=== PATIENT | female | born 1960 | race Caucasian/White ===

== ENCOUNTER → 2017-04-27 | Outpatient (CLI) | payer BC ==
[~2017-04-27] MED LIST: CALC500C70 PO; CEPH500C PO; CHOL20007 PO; HYDR-5688 PO; MULT-190 PO; VALA500T60 PO
--- NOTE | 2017-04-28 13:28 | MAMMOGRAPHY REPORT ---
BILATERAL DIGITAL SCREENING MAMMOGRAM TOMOSYNTHESIS WITH CAD: 04/27/2017 CLINICAL HISTORY: Routine screening. TECHNIQUE: Breast tomosynthesis in addition to standard 2D mammography was performed. Current study was also evaluated with a Computer Aided Detection (CAD) system. COMPARISON: Comparison is made to exams dated: 04/25/2016 mammogram, 10/23/2015 mammogram, 10/15/2015 mammogram, 05/19/2014 mammogram, 05/17/2012 mammogram, and 02/27/2011 mammogram - [facility]. BREAST COMPOSITION: The tissue of both breasts is heterogeneously dense, which may obscure small mas ses. FINDINGS: There is a new 7 mm irregular focal asymmetry in the 2:00 to 3:00 posterior right breast, for which additional targeted ultrasound and possible additional mammographic views are recommended. Scattered and grouped bilateral punctate microcalcifications appear generally stable comparing to ozzie or mammograms. No other suspicious mass, architectural distortion or cluster of microcalcifications is seen bilaterally. IMPRESSION: ACR BI-RADS CATEGORY 0: INCOMPLETE EVALUATION: NEED ADDITIONAL IMAGING EVALUATION The new 7 mm irregular focal asymmetry in the posterior right breast needs additional evaluation. The patient will be called to schedule an appointment. Approximately 10% of breast cancers are not detected with mammography. A negative mammographic report should not delay biopsy if a clinically suggestive mass is present. Linda Sheehan M.D. ay/:04/27/2017 16:38:53 Pediatrics Physician: Kaylie KEN)(Annel), [facility] letter sent: Addl Imaging 0 BI-RADS Code: ACR BI-RADS Category 0: Incomplete Evaluation: Need Additional Imaging Evaluation
== END | disposition home or self-care (01) ==
LOC: C.MAMM 11:34
PROVIDERS: ATTEND Obstetrics & Gynecology
DX: Z12.31 Encounter for screening mammogram for malignant neoplasm of breast (principal); N64.89 Other specified disorders of breast

== ENCOUNTER → 2017-05-25 | Outpatient (CLI) | payer BC ==
--- NOTE | 2017-05-25 14:32 | MAMMOGRAPHY REPORT ---
UNILATERAL RIGHT DIGITAL DIAGNOSTIC MAMMOGRAM TOMOSYNTHESIS AND TARGETED RIGHT ULTRASOUND: 05/25/2017 CLINICAL HISTORY: Callback from screening mammogram for right breast asymmetry. TECHNIQUE: Breast tomosynthesis in addition to standard 2D mammography was performed. Spot compress ion right CC and MLO tomosynthesis images including C views were obtained. COMPARISON: Comparison is made to exams dated: 04/27/2017 mammogram, 04/25/2016 mammogram, 10/23/2015 ultrasound, 10/23/2015 mammogram, 10/15/2015 mammogram, and 05/19/2014 mammogram - [facility]. BREAST COMPOSITION: The tissue of the right breast is heterogeneously dense, which may obscure small masses. FINDINGS: Spot compression views demonstrate a spiculated mass in the right upper inner quadrant pos teriorly, which is ill-defined and therefore difficult to measure mammographically but measures appro ximately 10 mm. Targeted ultrasound was performed of the right upper inner quadrant in the region of the mammographic mass. In the right breast at 2:00, 4 cm from the nipple, there is an irregular hypoechoic mass whic h measures approximately 9 x 6 x 6 mm. This corresponds with the mammographic mass and is suspicious for malignancy. Recommend ultrasound guided core needle biopsy for further evaluation. IMPRESSION: ACR BI-RADS CATEGORY 4C: MODERATE SUSPICION FOR MALIGNANCY, TARGETED ULTRASOUND ACR BI-R ADS CATEGORY 4C: MODERATE SUSPICION FOR MALIGNANCY Spiculated mass in the right upper inner quadrant mammographically, with an irregular 9 mm mass seen on ultrasound in the right 2:00 breast. The mass is suspicious for malignancy and ultrasound-guided core needle biopsy is recommended for further evaluation. A phone call was made to the physician's office to confirm faxed results were received. The patient has been verbally notified of the results. She would like to speak with Dr. Moody before scheduling the biopsy. Approximately 10% of breast cancers are not detected with mammography. A negative mammographic report should not delay biopsy if a clinically suggestive mass is present. Chandni Longoria M.D. /:05/25/2017 10:32:09 Meat Stuffer: Colleen KEN)(Annel), [facility] letter sent: Abnormal 4/5 BI-RADS Code: ACR BI-RADS Category 4C: Moderate Suspicion For Malignancy Ultrasound BI-RADS: ACR BI- RADS Category 4C: Moderate Suspicion For Malignancy
== END | disposition home or self-care (01) ==
LOC: C.MAMM 08:31
PROVIDERS: ATTEND Obstetrics & Gynecology
DX: R92.8 Other abnormal and inconclusive findings on diagnostic imaging of breast (principal); N63 Unspecified lump in breast

== ENCOUNTER → 2017-06-12 | Outpatient (CLI) | payer BC ==
--- NOTE | 2017-06-12 11:29 | Discharge Instructions ---
Discharge Instructions Procedure Procedure Date: Jun 12, 2017. Reason for visit: Right Mass. Discharge Discharge Date: Jun 12, 2017. Discharge Diagnosis: status post breast biopsy Instructions Activity Recommendations: Additional Limitations (see below) Return to School/Work: no limitations Recommended Home Diet: No Limitations Provider Instructions: ACTIVITY RECOMMENDATIONS: * No lifting, pushing, pulling or exercising the affected side for three days. RETURN TO SCHOOL/WORK: * You may return to work/school after the procedure, but do not perform any strenuous activities for 24 to 48 hours. MEDICATIONS: * Tylenol (two 325 mg) every four to six hours if needed for mild pain (if not allergic to Tylenol). DIET: * Resume previous diet. SPECIAL CARE INSTRUCTIONS: * Keep biopsy site dry for 24 hours. May shower after 24 hours, but do not soak (bathe) incision. * May remove Tegaderm (plastic patch) tomorrow AFTER showering. * Leave the steri-strips on for one week. Allow the steri-strips to fall off by themselves. If not off after one week, you may remove them. You may place a Bandaid crosswise over the strips, if desired. * Apply ice 10 minutes on and 10 minutes off as needed. * Wear a bra at bedtime to sleep more comfortably for 2-3 days. * Your referring physician should have the results after approximately 5 to 7 business days. * Call for unusual bleeding, fever, drainage, etc or if you have any questions call during normal business hours or after hours call Dr Longoria, . FOLLOW UP VISIT: Follow-up with Referring Physician as scheduled. Allergies Coded Allergies: No Known Allergies (Unverified , 12/23/15) Niraj Doss Recommendations: Call your doctor if: * Temperature above 101 degrees * Pain not relieved by pain medicine ordered * There is increased drainage or redness from any incision * You have any unanswered questions or concerns. Your Doctors Instructions noted above were prepared by provider Chandni Longoria. Patient Signature Section: Patient Instructions Signature Page Atifroger Barnes Patient (or Guardian) Signature/Date: I have read and understand the instructions given to me by my caregivers. Caregiver/RN/Doctor Signature/Date: The above-named patient and/or guardian has received patient instructions on this date. + Original Patient Signature Page (only) stays with chart. Please make copy for patient.
--- NOTE | 2017-06-12 13:59 | MAMMOGRAPHY REPORT ---
UNILATERAL RIGHT DIGITAL DIAGNOSTIC MAMMOGRAM TOMOSYNTHESIS: 06/12/2017 CLINICAL HISTORY: Status post ultrasound guided biopsy of right 2:00 breast mass. TECHNIQUE: Breast tomosynthesis in addition to standard 2D mammography was performed. Postprocedura l right XCCM and MLO tomosynthesis images including C views were obtained. COMPARISON: Comparison is made to exams dated: 05/25/2017 mammogram, 05/25/2017 ultrasound, 04/27/2017 mammogram, 04/25/2016 mammogram, 10/23/2015 mammogram, and 10/15/2015 mammogram - [facility]. BREAST COMPOSITION: The tissue of the right breast is heterogeneously dense, which may obscure small masses. FINDINGS: A new biopsy marker clip is seen at the site of the biopsied mass in the right 2:00 breast posteriorly. No significant postbiopsy hematoma is seen. IMPRESSION: POST PROCEDURE IMAGING FOR MARKER PLACEMENT New biopsy marker clip status post ultrasound-guided biopsy of the right 2:00 breast mass. Pathology results are pending. Approximately 10% of breast cancers are not detected with mammography. A negative mammographic report should not delay biopsy if a clinically suggestive mass is present. Chandni Longoria M.D. /:06/12/2017 11:39:50 Home Theater Expert: Kaylie WHALEY(Sam)(M), [facility] BI-RADS Code: Post Procedure Imaging For Marker Placement
--- NOTE | 2017-06-12 13:59 | MAMMOGRAPHY REPORT ---
THIS REPORT HAS BEEN AMENDED. ULTRASOUND GUIDED BIOPSY RIGHT BREAST: 06/12/2017 CLINICAL HISTORY: Suspicious right 2:00 breast mass. PATIENT CONSENT: The procedure, risks and benefits were discussed with the patient and informed writt en consent was obtained. A timeout was performed immediately prior to the procedure. PROCEDURE DESCRIPTION: With ultrasound guidance, aseptic technique, and lidocaine as the local anesth etic (1% lidocaine to anesthetize the skin and 1% lidocaine with epinephrine to anesthetize the deepe r tissues), the mass of concern in the right 2:00 breast was sampled 4 times with a 14-gauge Achieve biopsy needle. Immediately thereafter, with ultrasound guidance, aseptic technique, and lidocaine as the local anesthetic, a metallic localizer clip was placed at the biopsy site. Direct pressure was applied to the site immediately post procedure and hemostasis was achieved. Postprocedure unilateral mammograms were performed to confirm placement of the clip in the expected location of the breast ma ss. The patient tolerated the procedure without complication. She was given wound care instructions . The specimens were sent to pathology for analysis. COMPARISON: Comparison is made to exams dated: 05/25/2017 mammogram, 05/25/2017 ultrasound, 04/27/2017 mammogram, 04/25/2016 mammogram, 10/23/2015 mammogram, and 10/15/2015 mammogram - [facility]. IMPRESSION: ULTRASOUND GUIDED BIOPSY Ultrasound guided core needle biopsy of the right 2:00 breast mass, with clip placement. The patient will receive pathology results from her referring provider. Chandni Longoria M.D. ah/:06/12/2017 11:30:17 Attending Technologist: Kaylie WHALEY(Sam)(M), [facility] Administrative Assistant: Chandni Longoria MD, [facility] AMENDMENT: 06/17/2017 Chandni Longoria M.D. Pathology results from ultrasound-guided biopsy of a right 2:00 breast mass were reviewed on 7. The pathology shows infiltrative duct adenocarcinoma, which is concordant with the imaging findin gs. Recommend surgical consultation. Additionally, consider preoperative bilateral breast MRI given the heterogeneously dense breast parenchyma mammographically.
== END | disposition home or self-care (01) ==
LOC: C.MAMM 10:52
PROVIDERS: ATTEND Obstetrics & Gynecology
DX: R92.8 Other abnormal and inconclusive findings on diagnostic imaging of breast (principal); N63 Unspecified lump in breast

== ENCOUNTER → 2017-06-30 | Outpatient (CLI) | payer BC ==
[~2017-06-30] MED LIST changes: +GADAVIST IV PRN
--- NOTE | 2017-07-01 07:56 | MAMMOGRAPHY REPORT ---
BREAST MRI OF BOTH BREASTS : 06/30/2017 CLINICAL HISTORY: 56-year-old woman with newly diagnosed right breast cancer presents for preoperativ e assessment. COMPARISON: Comparison is made to exams dated: 06/12/2017 ultrasound biopsy, 05/25/2017 mammogram, 05/03 ultrasound, 04/27/2017 mammogram, 04/25/2016 mammogram, and 10/23/2015 ultrasound - [facility]. TECHNIQUE: Using a 1.5 Keshia magnet and dedicated breast coil, multisequence axial images were obtain ed through the breasts. After uneventful IV administration of 6 mL of Gadavist, dynamic multiphase c ontrast-enhanced axial images, and sagittal postcontrast were obtained. Temporal subtraction axial i mages and 3-D MIP images are provided. Everything was then reviewed on a 3-D workstation, Fronto. FINDINGS: Right breast: There is minimal background parenchymal enhancement. There is an angular and spiculate d enhancing mass in the far posterior 2:00 right breast adjacent to the pectoralis muscle. Some of t he spicules extend to the pectoralis muscle, but a thin fat plane remains intact. There is no eviden ce of pectoralis muscle enhancement to suggest invasion. This mass contains an internal biopsy marke r clip and measures 8 x 6 x 9 mm. It demonstrates mixed persistent, plateau and washout kinetics, an d represents the patient's newly diagnosed cancer. Approximately 13 mm inferior to the biopsy proven cancer, in the 4:00 far posterior right breast, is a small ovoid 3 mm focus of enhancement with mixe d plateau and persistent kinetics. This is suspicious for additional disease and targeted second loo k ultrasound with possible ultrasound-guided core biopsy is recommended. In the 12:00 posterior righ t breast there is suspicious focal non-mass enhancement with associated washout and plateau kinetics, measuring 6 x 8 x 5 mm. Again, targeted second look ultrasound with possible ultrasound-guided core biopsy is recommended. Overall these right breast findings are suspicious for multifocal versus mul ticentric disease. No other suspicious mass or non-mass enhancement or suspicious kinetics are ident ified in the right breast. There is a plump right superior axillary lymph node measuring approximate ly 13 mm, with a cortex measuring up to 5 mm. Targeted second look ultrasound is also recommended th e right axilla, with possible ultrasound-guided core biopsy. Left breast: There is minimal background parenchymal enhancement. There is focal non-mass enhancemen t measuring 6 x 6 x 7 mm in the 1:00 posterior left breast with persistent kinetics. Although this c ould represent fibrocystic change, DCIS could appear similar and targeted second look ultrasound with possible ultrasound-guided core biopsy is recommended. No other suspicious enhancing mass, non-mass enhancement or suspicious kinetics are seen in the left breast. No suspicious left axillary lymphad enopathy. IMPRESSION: ACR BI-RADS CATEGORY 4B: INTERMEDIATE SUSPICION FOR MALIGNANCY 1. An angular and spiculated 8 x 6 x 9 mm mass with associated biopsy marker clip in the 2:00 far po sterior right breast represents the patient's newly diagnosed right breast cancer. There is no evide nce of pectoralis muscle invasion. 2. 2 additional subcentimeter right breast lesions are identified in the 4:00 and 12:00 axes, for wh ich targeted second look ultrasound and possible ultrasound-guided core biopsy is recommended. 3. There is a plump right superior axillary lymph node with mildly thickened cortex measuring up to 5 mm. Right axillary ultrasound with possible axillary lymph node biopsy is recommended. 4. Focal non-mass enhancement in the 1:00 left breast measuring 6 x 6 x 7 mm, for which targeted sec ond look ultrasound and possible ultrasound-guided core biopsy is recommended. 5. If second look ultrasound is un yielding for any of the above lesions, MRI guided biopsy may be n eeded. The patient will be called to schedule an appointment. Linda Sheehan M.D. ay/:06/30/2017 21:42:40 Rn Hemo Dialysis: [employer] web[employer] portal developer, [facility] letter sent: Abnormal 4/5 BI-RADS Code: ACR BI-RADS Category 4B: Intermediate Suspicion For Malignancy
== END | disposition home or self-care (01) ==
LOC: C.MRI 06:39
PROVIDERS: ATTEND Surgery
DX: C50.911 Malignant neoplasm of unspecified site of right female breast (principal); N64.89 Other specified disorders of breast

== ENCOUNTER → 2017-07-07 | Outpatient (CLI) | payer BC ==
[~2017-07-07] MED LIST changes: -GADAVIST IV PRN
--- NOTE | 2017-07-07 16:43 | MAMMOGRAPHY REPORT ---
ULTRASOUND OF BOTH BREASTS: 07/07/2017 CLINICAL HISTORY: Bilateral breast abnormalities and possible enlarged right axillary lymph node seen on recent breast MRI. Patient presents for bilateral second look ultrasound, possible ultrasound gu ided core biopsy. COMPARISON: Comparison is made to exams dated: 06/12/2017 mammogram, 05/25/2017 mammogram, 05/25/2017 u ltrasound, 04/27/2017 mammogram, 04/25/2016 mammogram, and 10/23/2015 ultrasound - [facility]. FINDINGS: Targeted ultrasound was performed in both breasts and the right axilla to assess for the a bnormalities seen on recent breast MRI. In particular, sonographic evaluation was performed in the 1 2:00, 11:00 and 1:00 axes of the right breast and also in the approximate 4:00 axis of the right bailee st to evaluate for the subcentimeter enhancing lesions described on the recent MRI report. However, no discrete sonographic abnormality is seen to correlate with the MRI findings. The patient's biopsy proven cancer is again identified in the 2:00 right breast. The finding in the 12:00 axis remains s uspicious, with linear enhancement and associated washout kinetics. Therefore, MRI guided biopsy is recommended for definitive characterization. The tiny lesion identified in the 4:00 axis is likely a menable to excision at the time of definitive treatment in the 2:00 axis of the right breast. Targeted ultrasound was also performed in the 12:00, 1:00 and 2:00 axes of the left breast to assess for the non-mass enhancement seen on recent MRI. However, only a 4 x 2 mm oval hypoechoic region of tissue is identified. The shape and size measurements do not correspond to the MRI finding and this could simply represent stromal fibrosis. I am unsure if this correlates with the MRI finding, and to reduce the possibility of sampling error or nontarget biopsy, would prefer an MRI guided biopsy in t he left breast as well. Additional ultrasound was performed throughout the right axilla. At least 3 morphologically normal l ymph nodes are seen. The largest lymph node is seen in the superior axilla measuring approximately 1 cm and this may correlate with the dominant lymph node described on MRI. However, this lymph node h as a homogeneous thin cortex measuring 0.6 mm. The other lymph nodes seen all of cortical thickness within the range of normal, ranging from 0.8-1.5 mm. There is no evidence of suspicious lymphadenopa thy or asymmetric cortical thickening. IMPRESSION: ACR BI-RADS CATEGORY 4B: INTERMEDIATE SUSPICION FOR MALIGNANCY - FOLLOW-UP RECOMMENDED 1. Targeted second look ultrasound in both breasts and the right axilla was performed. Second look ultrasound failed to demonstrate any abnormality within the right 12:00, 4:00 and left 1:00 axes. Th erefore, MRI guided biopsy in the right 12:00 and left 1:00 axis is recommended. 2. The tiny lesion in the 4:00 axis of the right breast is likely amenable to surgical excision at t he time of definitive treatment for the biopsy proven cancer in the 2:00 axis, as it is located withi n 1.3 cm inferior to the biopsy proven cancer. 3. Morphologically normal lymph nodes within cortices were identified in the right axilla on targete d second look ultrasound, without evidence of suspicious lymphadenopathy. These results and recommendations were discussed with the patient at the time of the exam. She tenta tively scheduled the MRI breast biopsies prior to leaving our department. The results and recommenda tions were also discussed with the patient's surgeon, Dr. Wu. Linda Sheehan M.D. ay/:07/07/2017 14:25:58 Talent Acquisition Assistant: Dr. Linda Sheehan, [facility] letter sent: Abnormal 4/5 BI-RADS Code: ACR BI-RADS Category 4B: Intermediate Suspicion For Malignancy
== END | disposition home or self-care (01) ==
LOC: C.MAMM 12:50
PROVIDERS: ATTEND Surgery
DX: R92.8 Other abnormal and inconclusive findings on diagnostic imaging of breast (principal)

== ENCOUNTER → 2017-07-15 | Outpatient (CLI) | payer BC ==
[~2017-07-15] MED LIST changes: +LIDO/EPINEPHRINE/SOD BICARB 20 ML VIAL INFIL ONE; +XYLOCAINE 1%/SOD BICARB 20 ML VIAL INFIL ONE
--- NOTE | 2017-07-15 12:55 | Discharge Instructions ---
Discharge Instructions Procedure Procedure Date: Jul 15, 2017. Reason for visit: Rt Lesions/Lt Non-Mass Enhancement. Discharge Discharge Date: Jul 15, 2017. Discharge Diagnosis: post bilateral breast MRI guided biopsies Instructions Activity Recommendations: Additional Limitations (see below) Return to School/Work: no limitations Recommended Home Diet: No Limitations Provider Instructions: ACTIVITY RECOMMENDATIONS: * No lifting, pushing, pulling or exercising the affected side for three days. RETURN TO SCHOOL/WORK: * You may return to work/school after the procedure, but do not perform any strenuous activities for 24 to 48 hours. MEDICATIONS: * Tylenol (two 325 mg) every four to six hours if needed for mild pain (if not allergic to Tylenol). DIET: * Resume previous diet. SPECIAL CARE INSTRUCTIONS: * Keep biopsy site dry for 24 hours. May shower after 24 hours, but do not soak (bathe) incision. * May remove Tegaderm (plastic patch) tomorrow AFTER showering. * Leave the steri-strips on for one week. Allow the steri-strips to fall off by themselves. If not off after one week, you may remove them. You may place a Bandaid crosswise over the strips, if desired. * Apply ice 10 minutes on and 10 minutes off as needed. * Wear a bra at bedtime to sleep more comfortably for 2-3 days. * Your referring physician should have the results after approximately 5 to 7 business days. * Call for unusual bleeding, fever, drainage, etc or if you have any questions call [phone] during normal business hours or after hours call Dr Sheehan, . FOLLOW UP VISIT: Follow-up with Referring Physician as scheduled. Allergies Coded Allergies: No Known Allergies (Unverified , 07/03/17) Niraj Doss Recommendations: Call your doctor if: * Temperature above 101 degrees * Pain not relieved by pain medicine ordered * There is increased drainage or redness from any incision * You have any unanswered questions or concerns. Your Doctors Instructions noted above were prepared by provider Linda Sheehan. Patient Signature Section: Patient Instructions Signature Page Atif Barnes Patient (or Guardian) Signature/Date: I have read and understand the instructions given to me by my caregivers. Caregiver/RN/Doctor Signature/Date: The above-named patient and/or guardian has received patient instructions on this date. + Original Patient Signature Page (only) stays with chart. Please make copy for patient.
--- NOTE | 2017-07-15 14:21 | MAMMOGRAPHY REPORT ---
BILATERAL DIGITAL DIAGNOSTIC MAMMOGRAM: 07/15/2017 CLINICAL HISTORY: Status post bilateral breast MRI guided biopsies. Please refer to the report from bilateral breast MRI guided biopsy performed at the same time for prachi l detail. IMPRESSION: POST PROCEDURE IMAGING FOR MARKER PLACEMENT Please refer to the report from bilateral breast MRI guided biopsy performed at the same time for ful l detail. Approximately 10% of breast cancers are not detected with mammography. A negative mammographic report should not delay biopsy if a clinically suggestive mass is present. Linda Sheehan M.D. ay/:07/15/2017 13:51:39 Manager Primary Care: Delores WHALEY(Sam)(Annel), [facility] BI-RADS Code: Post Procedure Imaging For Marker Placement
--- NOTE | 2017-07-15 14:21 | MAMMOGRAPHY REPORT ---
MRI BIOPSIES BOTH BREASTS: 07/15/2017 CLINICAL HISTORY: Enhancing lesions identified in the 12:00 right breast and 1:00 left breast. Lukas osorio presents for bilateral MRI guided biopsy. 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 COMPARISON: Comparison is made to exams dated: 06/30/2017 breast MRI, 06/12/2017 mammogram, 06/12/2017 ultrasound biopsy, 05/25/2017 mammogram, 05/25/2017 ultrasound, and 04/27/2017 mammogram - [facility]. PATIENT CONSENT: After explaining the risks, benefits and alternatives of the procedure to the lena patel, informed consent was obtained both verbally and in writing. Specific risks include: Bleeding, inf ection, puncture of adjacent structure, medication reaction, breast or lung injury, sampling error. PROCEDURE DESCRIPTION: A timeout was performed prior to starting the procedure, and both breasts agre ed as the sites for biopsy. The patient was placed prone on a 1.5 Keshia MRI scanner. The lateral and superior aspect of each dale ast was cleansed with ChloraPrep. The breasts were positioned surrounding a central breast coil with lateral grid compression and MRI guidance device. After localizing sequences were obtained, pre-and postcontrast axial sequences were obtained, using 6 .3 cc Gadavist without immediate reaction. The postcontrast images confirm the persistence of the fo uday area of enhancement in the 12:00 posterior right breast, and also the middle one third of the lef t breast. Using these images, targeting was performed using [employer] software. Starting on the right side, the skin was re-prepped with Betadine through the grid, and after local a nesthesia was achieved, an introducer sheath and localizing basting machine operator were placed into the site labele d "A" using a lateral approach. The site in the left breast was reprepped with Betadine and local an esthesia was given an introducer sheath and localizing basting machine operator replaced into the site labeled "B", a lso using a lateral approach. The location of both obturator sheaths was confirmed with additional a xial images. After confirming adequate placement of the obturator sheaths, several samples were take n from both the site in the right and left breast with a [facility] 9-gauge vacuum-assisted biopsy de vice. Post biopsy images demonstrate good sampling of each lesion, therefore, through the introducer sheath , metallic biopsy markers were placed. The patient tolerated the procedure well and there was no immediate complication. Hemostasis was ach ieved after several minutes of manual compression. The samples were sent expedited to pathology in a ppropriately labeled containers. Postprocedure mammography of both breasts was performed. There is a new S-shaped metallic biopsy mar ker and no significant hematoma in the 12:00 far posterior right breast, at the site of the biopsied enhancement. This marker clip is located 1.5 cm anterosuperior to the ribbon clip denoting the patie nt's biopsy proven cancer in the right breast. There is a dumbbell shaped metallic biopsy marker in the upper outer middle one third of the left breast, at the site of the biopsied non-mass enhancement . No significant postbiopsy hematoma. IMPRESSION: MRI BIOPSY Status post MRI guided biopsy of enhancing lesions in the 12:00 posterior right breast, and 1:00 midd le one third of the left breast, with biopsy marker is placed at each site. The patient will receive notification of the biopsy results from her referring physician. Linda Sheehan M.D. ay/:07/15/2017 14:00:47 Chemical Operations Specialist: goods layer, [facility]
== END | disposition home or self-care (01) ==
LOC: C.MRI 10:16
PROVIDERS: ATTEND Surgery
DX: D05.11 Intraductal carcinoma in situ of right breast (principal); N60.92 Unspecified benign mammary dysplasia of left breast

== ENCOUNTER 2017-07-22 07:54 | Inpatient (IN) | payer BC ==
[2017-07-03 08:34] VITALS: BMI 22.0
--- NOTE | 2017-07-03 09:07 | PAT Medication Instructions ---
Service Date Jul 03, 2017. Current Home Medication List Calcium/Vitamin D (Os-Raimundo 500 Plus D), 2 TAB PO QAM Cholecalciferol (Vitamin D3), 1 TAB PO QAM Ocuvite Preservision (Ocuvite Preservision), 1 TAB PO QAM Valacyclovir (Valtrex), 500 MG PO BID PRN for as directed Medication Instructions For Your Scheduled Surgery - Hold the following medications the morning of surgery: Calcium/Vitamin D (Os-Raimundo 500 Plus D), 2 TAB PO QAM Cholecalciferol (Vitamin D3), 1 TAB PO QAM Ocuvite Preservision (Ocuvite Preservision), 1 TAB PO QAM - Take the following medications the morning of surgery with a sip of water OTHERWISE NOTHING TO EAT OR DRINK AFTER MIDNIGHT: Valacyclovir (Valtrex), 500 MG PO BID PRN for as directed - Take the following medications as scheduled the night before surgery: Valacyclovir (Valtrex), 500 MG PO BID PRN for as directed If you have any questions please call us at [phone] or [phone] or [phone]
[2017-07-03 10:05] LABS: BASO % 0.4 %; BASO ABS # 0.02 K/uL (0-0.2); COMPLETE YES; EOS % 1.3 %; HEMATOCRIT 41.8 % (37-47); LYMPH % 30.3 %; LYMPH ABS # 1.35 K/uL (1.2-3.4); MEAN CELL VOLUME 93.1 fL (80-100); MEAN CORPUSCULAR HEMOGLOBIN 31.2 pg (25-34); MEAN CORPUSCULAR HGB CONC 33.5 g/dl (32-36); MEAN PLATELET VOLUME 9.3 fL (7.4-10.4); MONO % 10.8 %; NEUT % 57.2 %; PLATELET COUNT 254 K/uL (130-400); RED BLOOD COUNT 4.49 M/uL (4.2-5.4); WHITE BLOOD COUNT 4.45 K/uL (4.8-10.8)
[2017-07-03 10:24] LABS: BUN/CREATININE RATIO 15.4 (10-20); CALCIUM 8.7 mg/dl (8.5-10.1); CREATININE 0.8 mg/dl (0.60-1.20); POTASSIUM 4.4 mmol/L (3.5-5.1)
[~2017-07-22] VITALS: Ht 167.6 cm; Wt 62.9 kg
[2017-07-22] VITALS (8 sets, daily range): BP systolic 92–130; BP diastolic 55–81; PULSE 65–83; TEMP 36.4–36.7; O2SAT 97–100; Ht 167.6 cm; Wt 62.9 kg
[~2017-07-22 07:54] MED LIST changes: +CEFAZOLIN 2000 MG/60 ML D5W IV SCH; -CEPH500C PO; -HYDR-5688 PO; +LACTATED RINGER'S 1000ML 1,000 ML IV SCH; -LIDO/EPINEPHRINE/SOD BICARB 20 ML VIAL INFIL ONE; -XYLOCAINE 1%/SOD BICARB 20 ML VIAL INFIL ONE
[2017-07-22] MEDS ORDERED: FENTANYL CITRATE INJ 50 MCG/1 ML 2 ML VIAL ONE ×2 (09:22→10:51)
[2017-07-22] MEDS ORDERED: LIDOCAINE HCL 2% 2 ML VIAL (20MG/ML) ONE (09:22)
[2017-07-22] MEDS ORDERED: ONDANSETRON INJ 2 MG/ML 2 ML VIAL ONE (09:22)
[2017-07-22] MEDS ORDERED: DEXAMETHASONE SOD INJ 4 MG/ML VIAL ONE (09:22)
[2017-07-22] MEDS ORDERED: MIDAZOLAM HCL 1 MG/ML 2ML VIAL ONE (09:22)
[2017-07-22] MEDS ORDERED: PROPOFOL IV EMULSION 10 MG/ML 20 ML VIAL IV ONE (09:22)
--- NOTE | 2017-07-22 09:32 | History & Physical Bridge Note ---
H&P Re-Evaluation Bridge Note: I have examined the patient, reviewed the History & Physical and in the interval since the performance of the History & Physical I have noted the following changes of clinical significance: No changes noted
[2017-07-22] MEDS ORDERED: BUPIVACAINE 0.5 % 5 MG/1 ML MPF 30ML VIAL ONE (09:47)
[2017-07-22] MEDS ORDERED: ISOSULFAN BLUE 10 MG/ML VIAL 5 ML ONE (09:47)
--- NOTE | 2017-07-22 09:51 | DIAGNOSTIC IMAGING REPORT ---
LYMPH SENTINEL NODE ID CLINICAL HISTORY: 56 years-old Female presenting with BREAST CA. COMPARISON: Needle localization images from 07/22/2017. PROCEDURE: Using standard sterile technique, 4 intradermal and one deep injection of 0.545 mCi of Lymphoseek was placed in the right breast. The patient tolerated the procedure well. There were no immediate complications. The patient was subsequently transported to the surgical suite. No imaging was obtained at the referring physician's request. IMPRESSION: Injection of 0.545 mCi of Lymphoseek in the right breast. Electronically signed by: Mason Rodriguez M.D. 07/22/2017 9:50 AM Dictated Date/Time: 07/22/2017 9:49 AM
[2017-07-22] MEDS ORDERED: EpHEDrine SULFATE 50MG/5ML SYR ONE (10:20)
[2017-07-22] MEDS ORDERED: PHENYLEPHRINE HCL INJ 10 MG/ML VIAL ONE (10:38)
[2017-07-22] MEDS ORDERED: CEFOXITIN SOD 1 GM VIAL ONE ×2 (11:14→11:15)
[2017-07-22] MEDS ORDERED: HYDROmorphone INJ 2 MG/ML SYR/VIAL IV PRN (11:15)
[2017-07-22] MEDS ORDERED: EpHEDrine SULFATE INJ 50 MG/ML AMP IV PRN (11:15)
[2017-07-22] MEDS ORDERED: PHENYLEPHRINE 100MCG/ML 5ML SYR IV PRN (11:15)
[2017-07-22] MEDS ORDERED: ONDANSETRON INJ 2 MG/ML 2 ML VIAL IV PRN ×2 (11:15→12:00)
[2017-07-22] MEDS ORDERED: ATROPINE SULFATE 0.1 MG/ML 5ML SYR IV PRN (11:15)
[2017-07-22] MEDS ORDERED: LACTATED RINGER'S 1000ML 1,000 ML IV SCH (11:59)
--- NOTE | 2017-07-22 11:59 | [facility] Operative Report ---
Operative Report Operative Date Jul 22, 2017. Pre-Operative Diagnosis Breast Cancer Post-Operative Diagnosis Same as preoperative Procedure(s) Performed Right Breast Mastectomy and Right [place] Lymph Node Biopsy, Left Breast Biopsy with Needle Localization Surgeon Dr. Rinku Wu Pot Fireman Surgeon(s) Jesus Harevy PA-C Estimated Blood Loss 30ml Findings Rt sentinel LNs (3)- negative Specimens FROZEN: A.) Right [place] Lymph Node, left OR7 @1046 FRESH: A.) Left Breast Tissue, left OR7 @ 1046 B.) Right BReast Tissue, Silk is Lateral, left OR7 @ 1123 Drains [address] KLAUS Anesthesia gen Complication(s) None Disposition Recovery Room / PACU I attest to the content of the Intraoperative Record and any orders documented therein. Any exceptions are noted below.
[2017-07-22] MEDS ORDERED: PROMETHAZINE HCL INJ 25 MG in SODIUM CHLORIDE 0.9% 50ML 50 ML IV PRN (12:00)
[2017-07-22] MEDS ORDERED: HYDROCODONE/ACETAMOPHEN 5/325MG TAB PO PRN (12:00)
[2017-07-22] MEDS ORDERED: MoRPHine SULFATE 4 MG/ML 1 ML CARP\\VIAL IV PRN (12:00)
[2017-07-22] MEDS ORDERED: MoRPHine SULFATE 2 MG/ML CARP IV PRN (12:00)
[2017-07-22] MEDS ORDERED: HYDROmorphone INJ 2 MG/ML SYR/VIAL ONE (12:05)
[2017-07-22] MEDS ORDERED: CEFOXITIN SOD 2 GM VIAL IRRIG ONE (12:14)
[2017-07-22] MEDS ORDERED: PROMETHAZINE HCL INJ 12.5 MG in SODIUM CHLORIDE 0.9% 50ML 50 ML IV PRN (13:30)
--- NOTE | 2017-07-22 13:49 | Anesthesiology Progress Note ---
Anesthesia Post Op Note Date & Time Jul 22, 2017 at 13:49 Vital Signs Pain Intensity: 5.0 Vital Signs Past 12 Hours Date Time Temp Pulse Resp B/P (MAP) Pulse Ox O2 Delivery O2 Flow Rate FiO2 07/22/17 12:40 36.4 72 16 130/84 100 Nasal Cannula 3 07/22/17 12:30 74 16 130/81 100 Nasal Cannula 3 07/22/17 12:20 79 16 133/83 100 Oxymask 10 07/22/17 12:10 77 16 132/80 100 Oxymask 10 07/22/17 12:00 36.2 81 16 130/93 100 Oxymask 10 07/22/17 08:42 36.7 67 18 99/68 (78) 98 Room Air Notes Mental Status: alert / awake / arousable, participated in evaluation Pt Amnestic to Procedure: Yes Nausea / Vomiting: adequately controlled Pain: adequately controlled Airway Patency, RR, SpO2: stable & adequate BP & HR: stable & adequate Hydration State: stable & adequate Anesthetic Complications: no major complications apparent
--- NOTE | 2017-07-22 15:19 | MAMMOGRAPHY REPORT ---
SPECIMEN LEFT BREAST: 07/22/2017 CLINICAL HISTORY: Status post left breast surgical excision. COMPARISON: Comparison is made to exams dated: 07/15/2017 mammogram, 07/15/2017 MRI biopsy, 07/07/2017 u ltrasound, 06/30/2017 breast MRI, 06/12/2017 mammogram, and 05/25/2017 mammogram - [facility]. Findings: A radiograph was performed of the left breast surgical specimen. The localized biopsy tristian er clip and intact needle localization wire and needle are present within the specimen. Results were relayed to Dr. Wu over the telephone. IMPRESSION: SPECIMEN The imaged specimen contains the preoperatively-localized biopsy marker clip. Chandni Longoria M.D. ah/:07/22/2017 10:38:19 Slat Basket Maker Machine: Sarah KEN)(M), [facility]
--- NOTE | 2017-07-22 15:19 | MAMMOGRAPHY REPORT ---
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 PROCEDURE DESCRIPTION: With imaging guidance, aseptic technique, and 1% lidocaine as the local anesth etic, the area of concern was localized with a 5 cm Arndt II needle. The path of approach was late ral. The biopsy marker clip is located along the distal portion of the wire, approximately 20 mm pro ximal to the tip of the wire. The needle was left in place. After the procedure was finished, the p atient reported that she felt like she was going to pass out. The patient was placed in the supine p osition and a cold washcloth was placed on her forehead until she felt better. The patient was trans ported out of the department in a wheelchair with the breast health nurse navigator. COMPARISON: Comparison is made to exams dated: 07/15/2017 mammogram, 07/15/2017 MRI biopsy, 07/07/2017 u ltrasound, 06/30/2017 breast MRI, 06/12/2017 mammogram, and 06/12/2017 ultrasound biopsy - [facility]. IMPRESSION: NEEDLE LOCALIZATION Mammographic guided needle localization of the biopsy marker clip in the left upper outer quadrant. Chandni Longoria M.D. /:07/22/2017 08:23:32 Case Folder: Sarah KEN)(Annel), [facility]
[2017-07-22] MEDS: IBUPROFEN 600 MG TAB PO PRN (16:47)
[2017-07-22] MEDS: HYDROCODONE/ACETAMOPHEN 5/325MG TAB PO PRN ×2 (17:56→22:28)
[2017-07-22] MEDS: CEFAZOLIN IV 1,000 MG in DEXTROSE 5% 50ML 50 ML IV SCH (17:58)
--- NOTE | 2017-07-22 20:13 | OPERATIVE REPORT ---
DATE OF OPERATION: 07/22/2017 NAME OF OPERATION: Right mastectomy with sentinel lymph node biopsy and left breast needle localization biopsy. PREOPERATIVE DIAGNOSIS: Right breast cancer and atypia, left breast. POSTOPERATIVE DIAGNOSIS: Same. STAFF SURGEON: Dr. Wu. SCREW DOWN: Amadeo Harvey PA-C. ANESTHESIA: General. PROCEDURE: The patient was brought in the operating room and placed on the operating table in supine position. Her arms were extended on an arm board. Her chest was prepped and draped bilaterally. She had a needle placed in the left chest. She had had right breast injection for lymphoscintigraphy. The left breast was approached. Incision was made medial to the needle, which was lateral on the breast, carrying dissection down around the needle excising the tissue, placing it into the Faxitron. The clip was in the center of the specimen. Deep tissue on the left side was reapproximated using 2-0 plain catgut suture and the skin reapproximated using subcuticular 4-0 Monocryl and Steri-Strips. The right side was approached. The incision was made in the axilla carrying dissection down identifying the sentinel lymph node that was sent for frozen section. During the frozen section, we did perform a mastectomy. When the frozen section returned, there were 3 lymph nodes which were negative. The right breast mastectomy was performed by making an elliptical incision from medial to lateral from the sternum to the axilla incorporating the nipple areolar complex, constructing superior and inferior breast flaps, dissecting the subcutaneous tissue away from the breast tissue. The breast tissue was then taken from the pectoralis major muscle, removing the fascia. Vessels were ligated using 2-0 silk suture and 2-0 chromic catgut suture. The breast was marked with a 6-silk suture lateral. At this point, the tissue in the axilla was closed by reapproximating the deep tissue using 2-0 plain catgut suture then the skin using 5-0 Prolene suture. The mastectomy site was closed using subcutaneous 3-0 Vicryl suture and then running subcuticular 4-0 Monocryl with Steri-Strips. A 15 round Ernesto-Rivera drain was placed into the chest wound and secured to the skin using 3-0 nylon suture. Dressing was applied and the patient transferred to the recovery room in stable condition. I attest to the content of the Intraoperative Record and any orders documented therein. Any exception s are noted below.
[2017-07-23] MEDS: IBUPROFEN 600 MG TAB PO PRN ×3 (00:10→20:44)
[2017-07-23] MEDS: CEFAZOLIN IV 1,000 MG in DEXTROSE 5% 50ML 50 ML IV SCH ×3 (02:04→18:23)
--- NOTE | 2017-07-23 06:43 | Surgery Progress Note ---
Surgery Progress Note Date of Service Jul 23, 2017. Subjective awake. alert- minimal pain vitals stable Objective Vital Signs: Date Time Temp Pulse Resp B/P (MAP) Pulse Ox O2 Delivery O2 Flow Rate FiO2 07/23/17 00:00 Room Air 07/22/17 23:10 36.7 68 16 92/55 (67) 97 Room Air 07/22/17 20:09 36.7 65 18 103/68 (80) 98 Room Air 07/22/17 15:58 36.6 80 18 101/67 (78) 100 Nasal Cannula 3.0 07/22/17 14:50 78 118/79 (92) 07/22/17 13:50 83 16 114/72 (86) 07/22/17 13:20 36.4 68 16 116/75 (89) 100 Room Air 07/22/17 12:50 100 Nasal Cannula 3.0 07/22/17 12:50 100 Nasal Cannula 3.0 07/22/17 12:50 36.4 76 12 130/81 (97) 100 Nasal Cannula 3.0 07/22/17 12:40 36.4 72 16 130/84 100 Nasal Cannula 3 07/22/17 12:30 74 16 130/81 100 Nasal Cannula 3 07/22/17 12:20 79 16 133/83 100 Oxymask 10 07/22/17 12:10 77 16 132/80 100 Oxymask 10 07/22/17 12:00 36.2 81 16 130/93 100 Oxymask 10 07/22/17 08:42 36.7 67 18 99/68 (78) 98 Room Air General Appearance: no apparent distress Respiratory/Chest: no respiratory distress Incision(s): dry, intact, drainage (expected KLAUS drainage) Laboratory Results: Results Past 24 Hours Test 07/23/17 04:44 Range/Units Assessment & Plan 07/23/17- s/p Rt Mastectomy w/ sentinel lymph node bx- 3 LNs negative doing well, cont IV atbx, wound / drain care. May benefit from visiting nurse at home. ambulate
[2017-07-23] MEDS ORDERED: HYDR-5688 PO (07:41)
[2017-07-23] MEDS ORDERED: CEPH500C PO (07:41)
[2017-07-23 07:43] LABS: PROTHROMBIN TIME (PATIENT) 10.5 SECONDS (9.0-12.0)
--- NOTE | 2017-07-23 07:47 | Discharge Instructions ---
Discharge Instructions Date of Service Jul 23, 2017. Admission Reason for Admission: Right Breast Cancer W/Hosp Loc & Lymph Inj Discharge Discharge Diagnosis / Problem: breast cancer Discharge Goals Goal(s): Decrease discomfort, Improve function, Improve disease control Activity Recommendations Activity Limitations: as noted below Lifting Limitations: no more than 10 pounds (may use Rt arm for light activity) Exercise/Sports Limitations: until after follow-up appointment May Resume Sexual Activity: when tolerated Shower/Bathe: tomorrow (may shower, do not soak in bathtub) Driving or Machine Use: wait one week from surgery SPECIAL CARE INSTRUCTIONS: * Cover incisions and change daily for comfort/drainage. * Empty drain 2-3 times per day and record. * May use ibuprofen for pain as tolerated. * Expect some swelling and bruising. Call your doctor if: * Temperature above 101 degrees * Pain not relieved by pain medicine ordered * There is increased drainage or redness from any incision * You have any unanswered questions or concerns [phone]. FOLLOW UP VISIT: If not already scheduled, please call the office for a follow-up visit. for next week- drain/ wound check OFFICE PHONE NUMBER: Dr. Wu Office . Current Hospital Diet Patient's current hospital diet: Regular Diet Discharge Diet Recommended Diet: Regular Diet Procedures Procedures Performed: Right Breast Mastectomy and Right Lily Lymph Node Biopsy, Left Breast Biopsy with Needle Localization Pending Studies Studies pending at discharge: no Medical Emergencies . Who to Call and When: Medical Emergencies: If at any time you feel your situation is an emergency, please call 911 immediately. . Non-Emergent Contact Non-Emergency issues call your: Primary Care Provider, Surgeon . "Provider Documentation" section prepared by Rinku Wu. . VTE Core Measure Inpt VTE Proph given/why not?: Unfractionated heparin SQ, SCD's
[2017-07-23] MEDS: HEPARIN SOD 5000 UNIT/0.5 ML CARP SQ SCH ×2 (09:00→20:43)
[2017-07-23] MEDS: HYDROCODONE/ACETAMOPHEN 5/325MG TAB PO PRN ×2 (09:30→19:36)
--- NOTE | 2017-07-23 09:54 | Anesthesiology Progress Note ---
Anesthesia Post Op Note Date & Time Jul 23, 2017 at 09:53 Vital Signs Pain Intensity: 7.0 Vital Signs Past 12 Hours Date Time Temp Pulse Resp B/P (MAP) Pulse Ox O2 Delivery O2 Flow Rate FiO2 07/23/17 00:00 Room Air 07/22/17 23:10 36.7 68 16 92/55 (67) 97 Room Air Notes Mental Status: alert / awake / arousable, participated in evaluation Pt Amnestic to Procedure: Yes Nausea / Vomiting: adequately controlled Pain: adequately controlled Airway Patency, RR, SpO2: stable & adequate BP & HR: stable & adequate Hydration State: stable & adequate Anesthetic Complications: no major complications apparent
[2017-07-23 15:15] VITALS: BP 97/67; PULSE 70; TEMP 36.7; O2SAT 99
[2017-07-23] MEDS ORDERED: MAGNESIUM HYDROXIDE SUSP 30 ML UDC PO ONE (15:45)
[2017-07-23] MEDS: DOCUSATE SODIUM/SENNA 50/8.6MG TAB PO SCH ×2 (16:13→20:44)
[2017-07-23 22:54] VITALS: BP 102/68; PULSE 74; TEMP 37; O2SAT 98
[2017-07-24] MEDS: CEFAZOLIN IV 1,000 MG in DEXTROSE 5% 50ML 50 ML IV SCH ×2 (02:10→09:51)
[2017-07-24] MEDS: HYDROCODONE/ACETAMOPHEN 5/325MG TAB PO PRN (06:35)
[2017-07-24 07:29] VITALS: BP 117/80; PULSE 58; TEMP 36.9; O2SAT 98
--- NOTE | 2017-07-24 08:37 | DISCHARGE SUMMARY ---
DATE OF DISCHARGE: 07/24/2017 PRINCIPAL DIAGNOSIS: Right breast cancer. PROCEDURES: The patient underwent right mastectomy with sentinel lymph node biopsy and needle localization left breast biopsy. HISTORY OF PRESENT ILLNESS: The patient is a 56-year-old female who underwent mammography and bilateral breast biopsy including MRI biopsy which showed invasive cancer on the right side in 2 areas and atypia on the left side. HOSPITAL COURSE: The patient was brought in the hospital on 07/22/2017. She had undergone needle localization at the breast center and then injection in radiology here at the hospital and then taken to the operating room where she underwent left breast biopsy via needle localization and then also right mastectomy with sentinel lymph node biopsy. She had 3 lymph nodes which were negative on frozen section. She has done very well in both diet and activity and felt stable for discharge home today to be followed in the surgical clinic next week for drain evaluation and removal.
[2017-07-24] MEDS: DOCUSATE SODIUM/SENNA 50/8.6MG TAB PO SCH (09:00)
[2017-07-24 10:18] VITALS: BP 117/80; PULSE 58; TEMP 36.9; O2SAT 98
[2017-07-24] MEDS: IBUPROFEN 600 MG TAB PO PRN (11:39)
== END 2017-07-24 14:00 | disposition home health service (06) | DRG 581 ==
LOC: C.ACU 07:54 → C.MSN 12:03 → ENRESERV 12:27
PROVIDERS: ADMIT Surgery; ATTEND Surgery
PROC: 07B50ZX Excision of Right Axillary Lymphatic, Open Approach, Diagnostic (ICD-10-PCS; principal; 2017-07-22 10:30)
PROC: 0HTT0ZZ Resection of Right Breast, Open Approach (ICD-10-PCS; principal; 2017-07-22 10:30)
PROC: 0H9U3ZX Drainage of Left Breast, Percutaneous Approach, Diagnostic (ICD-10-PCS; principal; 2017-07-22 10:30)
DX: C50.911 Malignant neoplasm of unspecified site of right female breast (principal)

== ENCOUNTER → 2017-08-27 | Outpatient (CLI) | payer BC ==
[~2017-08-27] MED LIST changes: -CEFAZOLIN 2000 MG/60 ML D5W IV SCH; +HYDR-5688 PO; -LACTATED RINGER'S 1000ML 1,000 ML IV SCH
== END | disposition home or self-care (01) ==
LOC: C.PAPS 13:17
PROVIDERS: ATTEND Obstetrics & Gynecology
DX: Z01.419 Encounter for gynecological examination (general) (routine) without abnormal findings (principal); Z78.0 Asymptomatic menopausal state; Z85.3 Personal history of malignant neoplasm of breast

== ENCOUNTER → 2017-10-27 | Outpatient (CLI) | payer BC | END | disposition home or self-care (01) | LOC: C.MAMM 15:28 | PROVIDERS: ATTEND Internal Medicine Hematology & Oncology | DX: M85.88 Other specified disorders of bone density and structure, other site (principal); M85.851 Other specified disorders of bone density and structure, right thigh; M85.852 Other specified disorders of bone density and structure, left thigh ==

== ENCOUNTER → 2017-11-06 | Outpatient (CLI) | payer OTHER ==
[2017-11-06 12:23] LABS: BASO % 0.6 %; BASO ABS # 0.03 K/uL (0-0.2); EOS % 1.1 %; EOS ABS # 0.05 K/uL (0-0.5); HEMATOCRIT 39.8 % (37-47); HEMOGLOBIN 13.3 g/dL (12.0-16.0); IG# 0.01 K/uL (0.00-0.02); LYMPH % 30.8 %; LYMPH ABS # 1.43 K/uL (1.2-3.4); MEAN CELL VOLUME 92.8 fL (80-100); MEAN CORPUSCULAR HGB CONC 33.4 g/dl (32-36); MEAN PLATELET VOLUME 9.8 fL (7.4-10.4); MONO % 9.9 %; MONO ABS # 0.46 K/uL (0.11-0.59); NEUT % 57.4 %; NEUT ABS # 2.67 K/uL (1.4-6.5); PLATELET COUNT 240 K/uL (130-400); RED CELL DISTRIBUTION WIDTH CV 13.6 % (11.5-14.5); RED CELL DISTRIBUTION WIDTH SD 45.7 fL (36.4-46.3); WHITE BLOOD COUNT 4.65 K/uL (4.8-10.8)
[2017-11-06 12:40] LABS: ALBUMIN 3.6 gm/dl (3.4-5.0); ALT/SGPT 49 U/L (12-78); AST/SGOT 29 U/L (15-37); BLOOD UREA NITROGEN 17 mg/dl (7-18); CARBON DIOXIDE 29 mmol/L (21-32); CREATININE 0.89 mg/dl (0.60-1.20); GLUCOSE 84 mg/dl (70-99); POTASSIUM 4.2 mmol/L (3.5-5.1); SODIUM 139 mmol/L (136-145)
[2017-11-06 12:44] LABS: ALKALINE PHOSPHATASE 77 U/L (45-117)
== END | disposition home or self-care (01) ==
LOC: C.LAB1850 10:50
PROVIDERS: ATTEND Internal Medicine Hematology & Oncology
DX: C50.919 Malignant neoplasm of unspecified site of unspecified female breast (principal)